=== PATIENT | female | born 1965 | race African-American/Black ===

== ENCOUNTER 2016-11-21 12:15 | Observation (INO) ==
[2016-11-21] MEDS ORDERED: ENOXAPARIN 100 MG/ML SYRINGE SUBCUT STA (12:50)
[2016-11-21] MEDS ORDERED: ASPIRIN 325 MG TABLET PO STA (12:50)
[2016-11-21] MEDS ORDERED: NITROGLYCERIN SL 0.4 MG TABLET SL PRN (12:50)
--- NOTE | 2016-11-21 12:53 | EKG Report ---
Stationary ECG Study [facility] ER Test Date: 11/21/2016 12:34:05 PM Pat Name: WM FARIAS Department: Room: 283 Gender: F Time Study Clerk: CARMEN Mello : 1965 Requested by: Keshawn Varner Order Number: [id number] Reading MD: LEON UMAÑA Intervals [place] Rate: 54 P: 60 NE: 146 QRS: 54 QRSD: 93 T: 60 QT: 402 QTc: 388 Interpretive Statements SINUS BRADYCARDIA Electronically Signed On 11-23-16 07:01:46 CDT by LEON UMAÑA [email or web address]
[2016-11-21] MEDS ORDERED: ASPIRIN 325 MG TABLET ONE (13:32)
[2016-11-21] MEDS ORDERED: ENOXAPARIN 40 MG/0.4 ML SYRINGE ONE (13:32)
[2016-11-21] MEDS ORDERED: ENOXAPARIN 100 MG/ML SYRINGE SUBCUT ONE (13:32)
--- NOTE | 2016-11-21 13:43 | XRay Report ---
Portable chest Date: 11/21/2016 Clinical history: Chest pain Comparison: 11/06/2008 Technique: Portable AP sitting chest Findings: The heart is larger in size with uncoiling of the aorta. More prominent pulmonary vasculature with progressive diffuse parenchymal findings especially at the lung bases. Degenerative changes are noted. Impression: Progressive cardiomegaly with findings which can be seen with mild CHF/pneumonitis. PROCEDURE INTERPRETED AT [facility] DEPARTMENT OF RADIOLOGY Final Report Signed by: Dr. Eileen Marvin
[2016-11-21] MEDS ORDERED: FUROSEMIDE 40 MG/4 ML VIAL IV STA (14:35)
[2016-11-21] MEDS ORDERED: FUROSEMIDE 40 MG/4 ML VIAL ONE (15:05)
[2016-11-21 15:57] LABS: Albumin 3.4 G/DL (3.4-5.0); Bilirubin,Total 0.5 MG/DL (0.2-1.0); Calcium 9.3 MG/DL (8.5-10.1); Magnesium 2.1 MG/DL (1.8-2.4); Osmolality,Calculated 277.5 MOS/KG (273-304); Total Protein 7.3 G/DL (6.4-8.3)
--- NOTE | 2016-11-21 16:02 | Emergency Department Note ---
Jack Doherty Manpreet, am scribing for, and in the presence of, Keshawn Black MD 13:06. Wayne Doherty Phillip K, MD, personally performed the services described in this documentation, ascribed by Elliot Santiago in my presence, and it is both accurate and complete [id number] . Arrival - Arrival Chief Complaint: Chest Pain Stated Complaint: sent from clinic/possible heart attack ED Nursing Triage Note: Pt c/o Chest pain, SOB, left arm pain, nausea, and broke out into a sweat this am. Mode of Arrival: Ambulatory Source: Patient Time Seen by Provider: 11/21/16 12:31 - History of Present Illness HPI Narrative: Pt is a 51 y/o female, with PMHx of HTN, who was transferred from a clinic with CC of tight and sharp CP. Pt also c/o SOB, left arm pain, nausea, and broke out into a sweat this am. Pt reports of being more tired and was sweating but not clammy. Pt's last heart catheterization was over a year ago and has not had a treadmill done. Pt has not taken a ASA today. No other pains/complaints reported to ED. Onset (ago): hour(s) Consistency: constant Severity: moderate Severity scale (1-10): 3 Allergies/Adverse Reactions: Allergies Allergy/AdvReac Type Severity Reaction Status Date / Time Penicillins AdvReac Hallucinati Verified 11/21/16 12:18 ng Home Medications: Home Medications Medication Instructions Recorded Confirmed Type Albuterol Sulfate [Ventolin HFA] 2 puff INH DAILY 11/21/16 11/21/16 History Furosemide Tab [Lasix Tab] 40 mg PO DAILY 11/21/16 11/21/16 History Triamterene/Hctz 37.5-25 Tab 1 tablet PO QAM 11/21/16 11/21/16 History [Maxzide 37.5-25] Review of System - Review of System 12 point system: reviewed and no additional remarkable complaints except as stated - Review of System Constitutional: Present: chills, diaphoresis. Absent: fever Respiratory: Present: respiratory distress Cardiovascular: Present: chest pain, dyspnea on exertion Gastrointestinal: Present: nausea. Absent: vomiting Musculoskeletal: Present: arm pain (Left arm pain). Absent: back pain Neurological: Absent: headache, weakness Medical,Surgical,& Family Hx - Medical History Cardio: History of: Hypertension, Cardiovascular Problems (Hole in heart) Musculoskeletal: History of: Musculoskeletal Problems (arthritis) - Social History Smoking Status: Never smoker Exam Vital Signs: Vital Signs Temperature 97.1 F L 11/21/16 12:23 Pulse Rate 68 11/21/16 12:23 Respiratory Rate 25 H 11/21/16 12:35 Blood Pressure 203/107 11/21/16 12:23 O2 Sat by Pulse Oximetry 100 11/21/16 12:23 - General General appearance: alert, in no apparent distress - Head Head exam: Present: atraumatic, normocephalic, normal inspection - Eye Eye exam: Present: normal appearance, PERRL, EOMI - ENT ENT exam: Present: normal exam, normal oropharynx, mucous membranes moist, TM's normal bilaterally - Neck Neck exam: Present: normal inspection, full ROM, trachea midline. Absent: tenderness - Chest Chest inspection: Present: normal inspection, symmetric chest wall rise. Absent : tenderness - Respiratory Respiratory exam: Present: normal lung sounds bilaterally. Absent: accessory muscle use, prolonged expiratory phase, respiratory distress - Cardiovascular Cardiovascular exam: Present: regular rate, normal rhythm, murmur. Absent: normal heart sounds - Expanded Cardiovascular Exam Type of murmur: systolic Location of murmur: RUSB Intensity of murmur: 3/6 - Abdominal Exam Abdominal exam: Present: tenderness (LUQ Tenderness to palpation), normal bowel sounds. Absent: soft - Extremities Exam Extremities exam: Present: full ROM, other (+2 Bilat pitting edema). Absent: normal inspection - Back Exam Back exam: Present: normal inspection, full ROM. Absent: tenderness - Neurological Exam Neurological exam: Present: alert, oriented X3, CN II-XII intact, reflexes normal - Psychiatric Psychiatric exam: Present: normal affect, normal mood - Skin Skin exam: Present: warm, dry, intact, normal color. Absent: pallor Course Course Narrative: Patient discussed with Dr. Cho who will admit for further evaluation. Results - Labs Lab Results: I have reviewed the patients labs Labs: Laboratory Tests 11/21/16 15:02 Troponin I < 0.015 - EKG EKG results: interpreted by ERMD, sinus rhythm (Slight ST-T changes inferiorly and laterally.) - Diagnostic Findings Procedure: Chest x-ray: report reviewed by me (Progressive cardiomegaly with findings which can be seen with mild CHF/pneumonitis.) Disposition Clinical Impression: Chest pain, Hypertension, Heart murmur Case discussed with: patient Disposition: Still a Patient Condition: Guarded Additional Instructions: Admit to Dr. Cho for cardiac workup.
--- NOTE | 2016-11-21 16:08 | ECHO Report ---
Margot Frias Exam Date: 11/21/2016 13:56 Referring Physician: Technologist: Age: 51 Ht (in): Wt (lb): Gender: F Exam Location: [facility] Echo Indications: BP: / HR: Rhythm: Sinus Technical Quality: IMPRESSIONS Technically adequate study 1+ left atrial enlargement 2-3+ concentric LVH Hyperdynamic LV systolic function with ejection fraction estimated be 70% without segmental wall motion normality 3-4+ aortic stenosis by mean/peak gradient of 35/57 mmHg, but aortic valve does not appear to be severely stenotic (LVOT gradient?) 1+ tricuspid regurgitation with RVSP 37 mmHg plus RAP Consider ENDY to clarify degree of aortic valve stenosis per MEASUREMENTS (Male / Female) Normal Values 2D ECHO LV Diastolic Diameter PLAX 4.4 cm 4.2 - 5.9 / 3.9 - 5.3 cm LV Systolic Diameter PLAX 2.7 cm LV Fractional Shortening PLAX 38.7 % IVS Diastolic Thickness 1.7 cm 0.6 - 1.0 / 0.6 - 0.9 cm LVPW Diastolic Thickness 1.7 cm 0.6 - 1.0 / 0.6 - 0.9 cm RV Internal Dim ED PLAX 2.4 cm Aortic Root Diameter 2.5 cm LA Systolic Diameter LX 4.2 cm 3.0 - 4.0 / 2.7 - 3.8 cm DOPPLER TR Peak Velocity 304.0 cm/s TR Peak Gradient 37.0 mmHg FINDINGS Left Ventricle Right Ventricle Right Atrium Left Atrium Mitral Valve Aortic Valve Tricuspid Valve Pulmonic Valve Pericardium Aorta Isaías Cho (Electronically Signed) Final Date: 21 November 2016 16:07
--- NOTE | 2016-11-21 16:50 | Cardiology History & Physical ---
Assessment and Plan - Time spent with patient Time spent with patient: Greater than 30 minutes (1) Shortness of breath Status: Acute Assessment and plan: SEE PLAN OF CARE LISTED BELOW Current Visit: Yes (2) Sleep disorder Status: Chronic Assessment and plan: SEE PLAN OF CARE LISTED BELOW Current Visit: Yes (3) Aortic stenosis Status: Acute Assessment and plan: SEE PLAN OF CARE LISTED BELOW Current Visit: Yes (4) Dyslipidemia Status: Chronic Assessment and plan: SEE PLAN OF CARE LISTED BELOW Current Visit: Yes (5) Morbid obesity with BMI of 60.0-69.9, adult Status: Chronic Assessment and plan: SEE PLAN OF CARE LISTED BELOW Current Visit: Yes (6) Chest pain Status: Acute Assessment and plan: SEE PLAN OF CARE LISTED BELOW Current Visit: Yes (7) Hypertension Status: Chronic Assessment and plan: SEE PLAN OF CARE LISTED BELOW Current Visit: Yes (8) Heart murmur Status: Chronic Assessment and plan: SEE PLAN OF CARE LISTED BELOW Current Visit: Yes History of Present Illness Chief complaint: chest pain, left arm pain, cardiac murmur, SOB 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 BEARDEN Patient is being seen in the emergency department Ms. Frias, 51BF, has risk factors significant for: Hypertension, dyslipidemia, morbid obesity, sedentary lifestyle, family history of premature coronary artery disease. Patient has sleep disorder suspected to be sleep apnea. Ms. Frias presented to the emergency department at [facility] November 21, 2016 after experiencing chest pain and left arm discomfort. Initially, chest pain occurred Monday between 2 and 3 PM. Patient had eaten a large meal and felt as if it could be heartburn. She took several medications without relief. It did not radiate but did cause mild shortness of breath. She describes this as a heaviness. After approximately 30-45 minutes, and the discomfort resolved. This morning, as patient was getting out of bed she began to experience sharp and stabbing chest pain located in the mid chest area which radiated to the left arm. She began to feel nauseated, diaphoretic and short of breath. She does have reproducible chest discomfort but this is a separate type of chest pain. Chest discomfort lasted several hours as did the left arm pain. With the left arm pain, she felt numbness, tingling of her fingers. She rates the discomfort as a 7 on a scale of 1-10. She is currently chest pain-free. Of note, patient remarks that over the past 2-3 months, she has been experiencing chest heaviness while exerting herself. She reports taking a shower and or walking to her car causes extreme fatigue and chest heaviness as well as shortness of breath. Rest alleviates the discomfort. It is predictable and incurring on a routine pattern. Cardiac biomarkers are negative, EKG reveals nonspecific ST abnormality. Patient has a known cardiac murmur. Approximately 1 year ago, saw a supervisor assembly room at [place] and was told she may have "a pinhole size leak." She has never had a heart catheterization. Several years ago, underwent stress testing and received favorable results. She believes she may have previously been told she has aortic stenosis, the term is familiar. She has chronic edema. She is sedentary but has noticed a change in her exercise tolerance. Echocardiogram November 21, 2016 reveals the following: EF 70%, 3-4+ aortic stenosis by mean/peak gradient of 35/57 mmHg, but aortic valve does not appear to be severely stenotic (LVOT gradient?), RVSP 37mmHg. Patient may benefit from ENDY to further clarify degree of aortic valve stenosis. Patient needs further workup regarding her cardiac complaints of chest pain. Due to her habitus, she is not a candidate for stress testing. He may benefit from cardiac catheterization and should she undergo said procedure, may undergo ENDY during that procedure. Will recommend anesthesia to be present given the patient's morbid obesity and Mallampati Airway Class IV. Will continue to monitor cardiac biomarkers, EKG. Patient's blood pressure was extremely high on arrival and we will adjust medications accordingly. Will consult Dr. Arzola for evaluation of sleep disorder suspected to be severe sleep apnea. I will further discuss with Dr. Bearden and await additional recommendations. (CBC not back at this time. Having to be redrawn on numerous occasions due to clotting.) ASSESSMENT/PLAN: 1. AORTIC STENOSIS -transthoracic echocardiogram gives conflicting information regarding severity of aortic stenosis. May benefit from ENDY. Should she require ENDY, recommend anesthesia be present given her morbid obesity, neck circumference greater than 44 cm, Mallampati Airway Class IV. 2. CHEST PAIN - patient has numerous risk factors which puts her at risk for angina. May benefit from heart catheterization. She is not a candidate for stress testing due to her weight. I will keep her n.p.o. after midnight tonight. Venous ultrasound bilateral lower extremity. 3. HYPERTENSION -suboptimally controlled. On arrival blood pressure was 203/ 107. Currently 145/90. Will adjust medications accordingly during hospital stay. We will start Norvasc 5 mg now. Will add hydralazine as needed systolic blood pressure greater than 170 mmHg. 4. DYSLIPIDEMIA - continue lipid-lowering agent. Lipid profile in the morning 5. MORBID OBESITY - dietary counseling prior to discharge 6. SLEEP DISORDER - consult Dr. Arzola. Home Medications Medication Instructions Recorded Confirmed Type Albuterol Sulfate [Ventolin HFA] 2 puff INH DAILY 11/21/16 11/21/16 History Furosemide Tab [Lasix Tab] 40 mg PO DAILY 11/21/16 11/21/16 History Triamterene/Hctz 37.5-25 Tab 1 tablet PO QAM 11/21/16 11/21/16 History [Maxzide 37.5-25] Allergies Allergy/AdvReac Type Severity Reaction Status Date / Time Penicillins AdvReac Hallucinati Verified 11/21/16 12:18 ng Review of systems: REVIEW OF SYSTEMS: - Constitutional Constitutional: Present: Fatigue. Absent: syncope, anorexia, night sweats - EENT Eyes: Absent: blurry vision, loss of vision, diplopia Ears: Absent: decreased hearing, ear pain, ear discharge - Cardiovascular Cardiovascular: Present: chest pain with exertion, dyspnea on exertion, edema. Chest pain at rest. Denies palpitations. Absent: chest pain with deep breath, claudication - Respiratory Respiratory: Present: ALONZO, denies cough. Absent: wheezing, hemoptysis, change in phlegm color - Gastrointestinal Gastrointestinal: Present: constipation. Absent: abdominal pain, hematemesis , hematochezia, melena, change in bowel habits, nausea - Genitourinary Genitourinary: Absent: difficulty urinating, dysuria, urinary hesitancy, flank pain - Musculoskeletal Musculoskeletal: Present: back pain, knee pain absent: joint swelling, muscle cramps, muscle weakness - Neurological Neurological: Present: Poor gait without frequent falls. Absent: dizziness, hemiparesis - Psychiatric Psychiatric: Absent: anxiety, depression, difficulty concentrating - Endocrine Endocrine: Present: fatigue. Absent: cold intolerance, heat intolerance, polyuria, polyphagia, polydipsia - Hematologic/Lymphatic Hematologic/Lymphatic: Present: easy bruising. Absent: easy bleeding -Integumentary Integumentary: Absent: lesions, rashes, skin breakdown Medical,Surgical,& Family Hx - Medical History Cardio: History of: Hypertension, Cardiovascular Problems (Hole in heart) No history of: CAD, [place] Musculoskeletal: History of: Musculoskeletal Problems (arthritis) - Social History Smoking Status: Never smoker Have you smoked in the last 12 months: No Cardiology Physical Exam - Constitutional Vitals: Vital Signs Temp Pulse Resp BP Pulse Ox 97.1 F L 68 25 H 203/107 100 11/21/16 12:23 11/21/16 12:23 11/21/16 12:35 11/21/16 12:23 11/21/16 12:23 Intake and Output 11/21/16 11/21/16 11/21/16 07:59 15:59 23:59 Other: Weight 171.912 kg Patient Weight 11/21/16 23:59 Weight 171.912 kg Exam: General: [Appears well with no apparent distress.] [Pleasant and cooperative. ] [Appears comfortable.] HEENT: [PERRL, normocephalic, atraumatic. Mucous membranes moist. No jaundice noted. Conjunctiva moist and clear, sclerae anicteric] Neck: Unable to determine JVD due to habitus. No thyromegaly or lymphadenopathy noted. No carotid bruit appreciated Cardiac: [Regular rate and rhythm.] [IV/ VIKRAM heard best at BUSB. Lungs: [Clear to auscultation without accessory muscle use to assist the respiratory pattern.] Oxygen in use via nasal cannula Abdomen: Soft, bowel sounds normoactive. Nontender and nondistended. No abdominal bruit or thrill noted. No masses noted. Musculoskeletal: No fluid collection. Decreased range of motion is noted. Extremities: No clubbing, cyanosis noted. [Trace bilateral lower extremity edema noted.] Upper extremity pulses 2+. Lower extremity pulses 1+. Capillary refill less than 3 seconds. Skin: No unusual lesions or rashes. No skin breakdown appreciated. Neuro: Awake, alert and oriented 3. Moves all extremities well without hemiparesis or paralysis. No essential tremor is appreciated. Result/EKG - Labs CBC & BMP: 11/21/16 15:02 Lab Results: I have reviewed the past 24 hour labs Labs: Laboratory Results - last 24 hr 11/21/16 11/21/16 15:02 15:02 Sodium 139 Potassium 4.0 Chloride 104 Carbon Dioxide 26 Anion Gap 13.0 BUN 14 Creatinine 0.90 GFR Calculation 127 BUN/Creatinine Ratio 15.00 Glucose 93 Calculated Osmolality 277.5 Calcium 9.3 Magnesium 2.1 Total Bilirubin 0.50 AST 29 ALT 39 Alkaline Phosphatase 62 Troponin I < 0.015 Total Protein 7.3 Albumin 3.4 Globulin 3.9 H Albumin/Globulin Ratio 0.8 L - Diagnostic Findings Procedure: Chest x-ray: report reviewed by me, Ultrasound: report reviewed by me (Echo) - EKG EKG results: interpreted by me EKG shows: sinus rhythm
--- NOTE | 2016-11-21 17:47 | Ultrasound Report ---
Exam: US venous doppler LE BI Indication: Swelling lower extremities chest pain shortness of breath Date: 11/21/2016 4:56 PM Findings: Grayscale color flow duplex/Doppler imaging and spectral analysis waveform imaging was performed with real-time ultrasound with image stored and captured. The right common femoral, superficial femoral, popliteal saphenous veins are patent with normal augmentation and compression. There is no evidence of popliteal or Baires's cyst. Normal wave form analysis present. Normal color flow The left common femoral, superficial femoral, popliteal saphenous veins are patent with normal augmentation and compression. There is no evidence of popliteal or Baires's cyst. Normal wave form analysis present. Normal color flow Impression: 1. No DVT PROCEDURE INTERPRETED AT [facility] DEPARTMENT OF RADIOLOGY Final Report Signed by: Dr. Abbe Romano
[2016-11-21] MEDS ORDERED: POTASSIUM CHLORIDE 20 MEQ TABLET PO PRN (17:54)
[2016-11-21] MEDS ORDERED: DOCUSATE SODIUM 100 MG CAPSULE PO PRN (17:54)
[2016-11-21] MEDS ORDERED: ACETAMINOPHEN 325 MG TABLET PO PRN (17:54)
[2016-11-21] MEDS ORDERED: MAGNESIUM SULF RIDER 4 GM in PREMIX 1 EACH IV PRN (17:54)
[2016-11-21] MEDS ORDERED: BISACODYL 5 MG TABLET PO PRN (17:54)
[2016-11-21] MEDS ORDERED: ZALEPLON 5 MG CAPSULE PO PRN (17:54)
[2016-11-21] MEDS ORDERED: MAGNESIUM SULF RIDER 2 GM in PREMIX 1 EACH IV PRN (17:54)
[2016-11-21] MEDS: amLODIPine 5 MG TABLET PO SCH (18:17)
[2016-11-21] MEDS: PANTOPRAZOLE 40 MG TABLET PO SCH (18:17)
[2016-11-21] MEDS: SODIUM CHLORIDE 0.45% 1,000 ML IV SCH (18:17)
[2016-11-21 19:56] LABS: Basophils % 0.2 % (0.0-0.8); Eosinophils # 0.2 10*3/uL (0.0-0.87); Eosinophils % 1.4 % (0.00-10.9); Hematocrit 39.9 VOL% (35.7-47.0); Hemoglobin 13.3 GM/DL (12.0-16.0); Immature Granulocytes % 0.5 %; Immature Granulocytes Absolute 0.05 #; Lymphocytes # 2.5 10*3/uL (1.4-4.0); Lymphocytes % 23.6 % (21.3-54.2); Mean Corpuscular HGB Conc 33.3 GM/DL (32-36); Mean Corpuscular Hemoglobin 28 PG (27-34); Mean Corpuscular Volume 84.7 FL (87-102); Monocytes # 0.7 10*3/uL (0.11-0.8); Monocytes % 6.5 % (1.7-12.7); Neutrophils # 7.2 10*3/uL (1.4-7.4); Neutrophils % 67.8 % (38.7-73.9); Platelet Count 286 T/CUMM (130-400); Red Blood Count 4.71 MC/CUMM (3.8-5.5); Red Cell Distribution Width 13.7 % (9.3-17.3); White Blood Count 10.6 T/CUMM (4-12)
[2016-11-22] MEDS: hydrALAZINE 20 MG/1 ML VIAL IV PRN ×2 (01:16→23:33)
[2016-11-22] MEDS: ONDANSETRON 4 MG/2 ML VIAL IV PRN (03:15)
[2016-11-22 05:55] LABS: Basophils % 0.2 % (0.0-0.8); Eosinophils # 0.1 10*3/uL (0.0-0.87); Eosinophils % 0.9 % (0.00-10.9); Hematocrit 36.3 VOL% (35.7-47.0); Immature Granulocytes % 0.6 %; Immature Granulocytes Absolute 0.07 #; Lymphocytes # 1.9 10*3/uL (1.4-4.0); Lymphocytes % 16.3 % (21.3-54.2); Mean Corpuscular HGB Conc 33.1 GM/DL (32-36); Mean Corpuscular Hemoglobin 28 PG (27-34); Mean Corpuscular Volume 84.6 FL (87-102); Mean Platelet Volume 9.8 FL (9.6-12.0); Monocytes # 0.9 10*3/uL (0.11-0.8); Monocytes % 7.5 % (1.7-12.7); Neutrophils # 8.8 10*3/uL (1.4-7.4); Neutrophils % 74.5 % (38.7-73.9); Platelet Count 261 T/CUMM (130-400); Red Blood Count 4.29 MC/CUMM (3.8-5.5); Red Cell Distribution Width 13.7 % (9.3-17.3); White Blood Count 11.8 T/CUMM (4-12)
[2016-11-22 06:27] LABS: Calcium 8.9 MG/DL (8.5-10.1); Magnesium 2.1 MG/DL (1.8-2.4); Osmolality,Calculated 276.7 MOS/KG (273-304); Potassium 3.6 MMOL/L (3.5-5.1); Risk Ratio 5.63; VLDL CHOLESTEROL 34.4 MG/DL
[2016-11-22 06:29] LABS: Albumin 3.5 G/DL (3.4-5.0); Bilirubin,Total 0.8 MG/DL (0.2-1.0); Calcium 9.1 MG/DL (8.5-10.1); Osmolality,Calculated 276.7 MOS/KG (273-304); Potassium 3.6 MMOL/L (3.5-5.1); Total Protein 7.4 G/DL (6.4-8.3)
[2016-11-22] MEDS: SODIUM CHLORIDE 0.45% 1,000 ML IV SCH (08:30)
[2016-11-22] MEDS ORDERED: diphenhydrAMINE CAP 25 MG CAPSULE PO ONE (09:01)
[2016-11-22] MEDS ORDERED: POTASSIUM CHLORIDE RIDER 10 MEQ in PREMIX 1 EACH IV PRN (09:01)
[2016-11-22] MEDS ORDERED: DIAZEPAM 5 MG TABLET PO ONE (09:01)
[2016-11-22] MEDS ORDERED: MAGNESIUM SULF RIDER 2 GM in PREMIX 1 EACH IV PRN (09:01)
--- NOTE | 2016-11-22 09:01 | Event Note ---
Patient with chest pain and shortness of breath. Shortness is anginal quality. She has a murmur and told that she had a murmur for years. Echocardiogram reveals gradient across the aortic valve/LVOT. Question whether this patient is a is aortic valve stenosis. I am unable to bring the patient echo pictures. Anyway Dr. Cho request we do a right left heart catheterization. I have discussed this procedure with the patient reviewing the indication procedure how would be carried out the risk. I discussed with her her echo results per report. I discussed cardiac catheterization and percutaneous coronary intervention with the patient and available family. I reviewed with them the indications for the procedure and the basis of how the procedure would be carried out. I also reviewed with them the risk of the procedure which include but not necessarily limited to access site bleeding, bruising, pain, swelling or vascular injury that may require emergency vascular surgery, blood transfusion, or thrombin injection. Also discussed the possibility of stroke, myocardial infarction, arrhythmia which may require electrocardioversion, and the possibility of dye reaction that would require medical therapy. Also discussed the possibility of coronary artery injury, ruptured, closure or perforation that may require emergency bypass surgery. We also discussed the possibility of from a major complication. They voice understanding and agree to proceed. We will plan on carrying out today.
--- NOTE | 2016-11-22 09:01 | History and Physical Update ---
Sedation H&P Update - History and Physical H&P was reviewed, the patient examined and there: are no changes in the patients condition since last H&P was completed. - Dictation Physical: refer to H&P completed by admitting physician - Physical Exam Mental Status: alert and oriented Heart: regular rate and rhythm, other (Has cardiac murmur of aortic valve disease/aortic stenosis.) Lung: clear to auscultation Abdomen: within normal limits Vitals: within normal limits - Sedation Plan for Sedation: moderate Patient Consent: Procedure disscussed with patient and patinet has consented., Risks and benefits were discussed with patient,including infection,, bleeding, injury to surrounding structures, seizure, temporary nerve, Patient understands and accepts potential risks/benefits and agrees to, proceed. ASA Class: III Airway Assessment: Class IV: Only hard palate visible
[2016-11-22] MEDS: TRIAMTERENE/HCTZ 37.5-25 MG TABLET PO SCH (09:51)
[2016-11-22] MEDS: FUROSEMIDE 40 MG TABLET PO SCH (09:51)
[2016-11-22] MEDS: PANTOPRAZOLE 40 MG TABLET PO SCH (09:52)
[2016-11-22] MEDS ORDERED: MIDAZOLAM 2 MG/2 ML VIAL ONE (11:56)
[2016-11-22] MEDS ORDERED: LIDOCAINE 1% 20 ML VIAL ONE (11:56)
[2016-11-22] MEDS ORDERED: fentaNYL 100 MCG/2 ML VIAL ONE (11:56)
[2016-11-22] MEDS: amLODIPine 5 MG TABLET PO SCH (12:04)
--- NOTE | 2016-11-22 13:26 | Operative Note ---
Date of procedure: 11/22/16 Procedure Preformed: Right and left heart catheterization with coronary angiography left ventricular angiogram. Surgeon / Physician: Elias Magdaleno Cellophane Bath Mixer: Erlinda Jeronimo Post-op diagnosis: same Findings: Patient has a subaortic valve gradient without a valvular gradient. Coronary arteries are patent. LVEF is greater than 70% and hyperdynamic. Specimens: none sent Estimated blood loss: minimal Condition: stable Anesthesia: local, conscious sedation Disposition: floor
[2016-11-22] MEDS ORDERED: SODIUM CHLORIDE 0.9% 1,000 ML IV SCH (13:30)
--- NOTE | 2016-11-22 14:10 | Cardiac Catheterization ---
Date of Procedure:: 11/22/16 Pre-op Diagnosis: 51-year-old female whose shortness of breath and some chest discomfort. Echocardiogram reveals what may be aortic valve stenosis or so valvular stenosis. Post-op diagnosis: same Procedure: RIGHT AND LEFT HEART CATHERIZATION History: Pre-Op diagnosis: Postoperative diagnosis: Procedures: 1. Right and Left heart catheterization. 2. Left ventricular angiogram. 3. Selective left and right coronary angiograms. 4. Right common femoral artery angiogram with Angio-Seal hemostasis. 5. Left internal mammary artery angiogram. Equipment: 6 [place] arterial sheath, 6 [place] diagnostic pigtail catheter, JL4 and JR4 diagnostic catheters were used for left heart catheterization. 7 [place] venous sheath and 7 [place] Kingston-Bruno catheter were used for right heart catheterization A 6 [place] Angio-Seal hemostatic device. Medications: Preoperative Benadryl and Valium given by mouth. Lidocaine 1% local anesthesia mls administered by myself. Intraprocedure patient received Versed milligrams, fentanyl micrograms, Dilaudid milligrams. Complications: None immediate. Contrast: Omnipaque 131 millimeters. Description of procedure: After informed consent the patient was given preoperative medications and brought to the catheterization laboratory where their right groin was prepped and draped in usual fashion. IV sedation was then obtained after which local anesthesia was administered at the right groin over the right common femoral artery and vein. Using modified Seldinger technique the right common femoral artery and vein were cannulated with 6 [place] arterial sheath and 7 [place] venous sheath placed respectively. The Kingston-Bruno catheter was advanced through the 7 [place] femoral vein sheath in a antegrade fashion through inferior vena cava to the right atrium where O2 saturation sample was obtained. The catheter was then advanced into the pulmonary artery were O2 saturation sample was obtained. A simultaneous right femoral artery O2 saturation sample was obtained. Thermodilution cardiac outputs were then measured. At this point pressures were measured in the wedge position, pulmonary artery, right ventricle and then in the right atrium. Kingston- Bruno catheter was then removed and discarded. We initially advanced the right coronary catheter over a straight wire with the idea that we may have significant aortic valve stenosis. The straight wire was used to cross the aortic valve and enter the left ventricle where pressures were attempted to measure. We had a lot of ectopy that we could never get quite enough. We exchanged for the pigtail catheter across the aortic valve. Should be noted that we did do a pullback with this pigtail catheter and was easily able to recross aortic valve with the out even a wire. This certainly would indicate that there is not significant stenosis of the aortic valve. The pigtail catheter was used to acquire left ventricular pressures with slow pullback to just below the aortic valve. Across this area we saw that we had a significant drop in pressure. From this point pullback across the aortic valve we did not see a drop in pressure. We did document our positions with low dose contrast angiogram. After we completed mapping the pressures in the left ventricle and across the aortic valve in the LVOT outflow tract we removed the pigtail catheter. The pigtail catheter was used to obtain left ventricular angiogram in the right anterior oblique view. The pigtail catheter was then removed. The JL4 diagnostic coronary catheter was then advanced through the sheath in a retrograde approach and used to cannulate the left coronary artery of which angiograms were obtained in multiple projections. This catheter was then removed. The JR 4 diagnostic coronary catheter was then advanced retrograde through the aorta and used to cannulate the right coronary artery of which angiograms were obtained in multiple projections. Angiograms were then reviewed. The right coronary catheter was pulled back into the sheath where a right common femoral artery angiogram was obtained with Angio-Seal hemostasis then obtained of this vessel. There was no immediate complications. Hemodynamic data: PCW 36/29, mean 24; PA 50/21, mean 34; RV 50/7, EDP 15; RA mean 12. LV 215/-3 , EDP 19 ; Sub aortic valve 148/24; AO root 137/42 , mean 94 . Oxygen saturations: RA 82 %; PA 81 %; FA 98 % . Cardiac outputs: Josiane CO 10.23 L/min, CI 4 L/min/m2; Thermal Dilution CO 9.68 L/min, CI 3.8 L/min/m2. Aortic valve area: mild gradient at worse Left ventricular angiogram: Left ventricle is grossly normal size but hyperdynamic. Ejection fraction 70+%. See above in regard to the patient's gradients. From subvalvular to the aorta there was no gradient. Left main coronary artery angiogram: Left main coronary is widely patent and medium large size. It bifurcates the LAD and circumflex arteries. Left anterior descending artery angiogram: LAD proximal is large caliber vessel that extends around the posterior apex. The first diagonal branch is a medium sized vessel long car larger myocardium. The LAD and branches are without stenosis or other disease. Circumflex artery angiogram: The cervix was a large caliber vessel and nondominant. First obtuse and second obtuse marginal branches are small vessels. Distal third obtuse marginal branch is medium caliber vessel. The service artery proper and branches are widely patent without stenosis or other disease. Right coronary artery angiogram: The RCA is a medium caliber vessel dominant. The PDA is a medium caliber vessel with posterior branches being small medium caliber vessels. The RCA proper branches are all widely patent without stenosis or disease. Right common femoral artery angiogram: Right calf arteries widely patent with successful Angio-Seal hemostasis. Impression: 1. Right-sided pressures are mild to moderately elevated. 2. Left ventricle is normal size and hyperdynamic ejection fraction 70+%. 3. LVEDP is mildly elevated at 19 mmHg. 4. There is a subvalvular gradient in the left ventricle outflow tract as described above. 5. Aortic valve is without significant gradient it worse mild. 6. There is no significant mitral valve regurgitation. 7. Right left coronary systems are widely patent without stenosis or disease. 8. Right comfort is widely patent with successful Angio-Seal hemostasis. Discussion: The patient has what appears to be a subvalvular gradient across the LVOT. There is no significant gradient across the aortic valve itself. Coronary arteries are widely patent. This patient be monitored post catheterization. Implants: None Anesthesia: local, moderate conscious sedation Surgeon / Physician: Elias Magdaleno Estimated blood loss: minimal Specimens: none sent Condition: stable Disposition: floor - Medications / Follow-up
[2016-11-22] MEDS: ALBUTEROL 2.5 MG/3 ML NEB RESP TX SCH (14:17)
--- NOTE | 2016-11-22 16:05 | Event Note ---
Patient doing well post cardiac catheterization. Groin is stable. Discussed findings of the catheterization with the patient and family that is present.
--- NOTE | 2016-11-22 18:28 | Sleep Medicine Consult ---
Assessment and Plan (1) Sleep disorder Status: Chronic Assessment and plan: I am certainly concerned that this patient has a sleep disorder such as obstructive sleep apnea. She does need sleep evaluation with either home sleep testing or in lab polysomnography. She has [facility] which usually insists on home sleep study first. Apparently this had been tried to be done a year ago but she could not afford the [id number] expense. We will have to look into this and work with her on this. Thank you for this consult and the opportunity to participate in her care. I do think she has potential for significant benefit given the severity of her symptoms. Current Visit: Yes (2) Hypertension Status: Chronic Assessment and plan: The prevalence rate for obstructive sleep apnea patients with hypertension is 35 %. That rate can be as high as 80% in patients who require 4 or more medications for blood pressure control. Current Visit: Yes (3) Morbid obesity with BMI of 60.0-69.9, adult Status: Chronic Assessment and plan: Patient encouraged to continue to work on weight loss thru appropriate dieting and exercise. The combination of weight loss and CPAP therapy for obstructive sleep apnea is better than either therapy alone for obstructive sleep apnea. Current Visit: Yes History of Present Illness Chief complaint: Sleep apnea History of present illness: Ms. Frias is a 51 year old female admitted with shortness of breath. She has a history of aortic stenosis. She underwent cardiac catheterization today and was found to have mild aortic stenosis at worse across the valve but did have a subvalvular gradient. She had evidence of hyperdynamic left ventricular activity and an elevated end-diastolic pressure of 19. She has a history of symptoms concerning for sleep apnea and sleep medicine was consulted. She actually did have a sleep study many years ago at another sleep center and was told that she had mild sleep apnea and was treated with conservative measures of weight loss and positional training. Since that time, she is gaining weight and is developed worsening symptoms. She does snore loudly and has been told that she stops breathing during her sleep. She has difficulty maintaining sleep with frequent awakenings due to shortness of breath. She also has to get up 2-3 times a night to urinate. She denies any significant issues with daytime fatigue and sleepiness. Of note, she had palatal surgery with tonsillectomy and adenoidectomy as a teenager or young adult. Home Medications Medication Instructions Recorded Confirmed Type Albuterol Sulfate [Ventolin HFA] 2 puff INH DAILY 11/21/16 11/21/16 History Furosemide Tab [Lasix Tab] 40 mg PO DAILY 11/21/16 11/21/16 History Triamterene/Hctz 37.5-25 Tab 1 tablet PO QAM 11/21/16 11/21/16 History [Maxzide 37.5-25] Allergies Allergy/AdvReac Type Severity Reaction Status Date / Time Penicillins AdvReac Hallucinati Verified 11/21/16 12:18 ng Review of systems: Notable for lower extremity swelling. Exam (Pulmonay) H&P - Constitutional Vitals: Period Temp Pulse Resp BP Sys/Stein Pulse Ox Last 24 Hr 97.4 F-98.4 F 61-86 16-20 130-209/51-101 91-99 Exam: She is alert and responsive in no acute distress. Pupils equal round reactive to light and accommodation. Extraocular movements intact. Oropharynx with a class IV Mallampati exam. Neck is supple without adenopathy or thyromegaly. No supraclavicular adenopathy is noted. Chest with symmetrical breath sounds without focal wheeze, rhonchi, or rales. Cardiac exam reveals a regular rhythm with grade 2/6 murmur murmur without gallop. Abdomen obese nontender without palpable hepatosplenomegaly or mass. Extremities are without clubbing, cyanosis , or edema. Neurologically, the patient is grossly intact. She moves all extremities with good strength. Medical,Surgical,& Family Hx - Medical History Cardio: History of: Hypertension, Cardiovascular Problems (Hole in heart) No history of: CAD, [place] Respiratory: History of: Asthma Musculoskeletal: History of: Musculoskeletal Problems (arthritis) - Surgical History HEENT Surgeries: Surgical HX of: Tonsilectomy & Adenoidectomy - Family History Family History: Reports;: Family Heart Disease, Family Hypertension - Social History Smoking Status: Never smoker Frequency of Alcohol Use: None Type of Drug Use: None Results - Labs CBC & BMP: 11/22/16 05:38 11/22/16 05:38 Lab Results: I have reviewed the past 24 hour labs Labs: Thyroid function studies are normal. Quality Measures - VTE Contraindication to Pharmacological VTE Prophylaxis: High Risk of Bleeding - Stroke Symptom Onset Unknown: No
[2016-11-23 04:11] LABS: Basophils % 0.2 % (0.0-0.8); Eosinophils # 0.2 10*3/uL (0.0-0.87); Eosinophils % 1.8 % (0.00-10.9); Hematocrit 36.4 VOL% (35.7-47.0); Hemoglobin 11.8 GM/DL (12.0-16.0); Immature Granulocytes % 0.5 %; Immature Granulocytes Absolute 0.05 #; Lymphocytes # 2.1 10*3/uL (1.4-4.0); Lymphocytes % 19.4 % (21.3-54.2); Mean Corpuscular HGB Conc 32.4 GM/DL (32-36); Mean Corpuscular Hemoglobin 27 PG (27-34); Mean Corpuscular Volume 84.1 FL (87-102); Mean Platelet Volume 9.7 FL (9.6-12.0); Monocytes % 8.9 % (1.7-12.7); Neutrophils # 7.5 10*3/uL (1.4-7.4); Neutrophils % 69.2 % (38.7-73.9); Platelet Count 282 T/CUMM (130-400); Red Blood Count 4.33 MC/CUMM (3.8-5.5); Red Cell Distribution Width 13.7 % (9.3-17.3); White Blood Count 10.9 T/CUMM (4-12)
[2016-11-23 04:34] LABS: Calcium 9.1 MG/DL (8.5-10.1); Magnesium 2.2 MG/DL (1.8-2.4); Osmolality,Calculated 275.7 MOS/KG (273-304); Potassium 3.8 MMOL/L (3.5-5.1)
[2016-11-23 04:44] LABS: Albumin 3.5 G/DL (3.4-5.0); Bilirubin,Total 0.7 MG/DL (0.2-1.0); Calcium 9.3 MG/DL (8.5-10.1); Osmolality,Calculated 277.5 MOS/KG (273-304); Potassium 3.8 MMOL/L (3.5-5.1); Total Protein 7.3 G/DL (6.4-8.3)
[2016-11-23] MEDS: hydrALAZINE 20 MG/1 ML VIAL IV PRN (05:21)
[2016-11-23] MEDS: ONDANSETRON 4 MG/2 ML VIAL IV PRN (05:22)
[2016-11-23] MEDS: ALBUTEROL 2.5 MG/3 ML NEB RESP TX SCH (08:46)
[2016-11-23] MEDS: PANTOPRAZOLE 40 MG TABLET PO SCH (08:54)
[2016-11-23] MEDS: FUROSEMIDE 40 MG TABLET PO SCH (08:54)
[2016-11-23] MEDS: TRIAMTERENE/HCTZ 37.5-25 MG TABLET PO SCH (08:54)
[2016-11-23] MEDS: amLODIPine 5 MG TABLET PO SCH (08:54)
--- NOTE | 2016-11-23 09:53 | Event Note ---
Patient underwent cardiac catheterization yesterday. See report. Patient may be eligible for discharge this afternoon. She has had some nausea this morning. I will reevaluate her in early afternoon and hopefully plan to discharge her today.
[2016-11-23 11:41] VITALS: BP 165/87
--- NOTE | 2016-11-23 12:08 | Discharge Summary ---
Hospital Course - Hospital Course Hospital Course: TRAIN CALLER: (NEW) DR. BEARDEN Ms. Frias, 51BF, has risk factors significant for: Hypertension, dyslipidemia, morbid obesity, sedentary lifestyle, family history of premature coronary artery disease. Patient has sleep disorder suspected to be sleep apnea. Ms. Frias presented to the emergency department at [facility] November 21, 2016 after experiencing chest pain and left arm discomfort, associated with shortness of breath. Although patient did have reproducible chest pain, she also had a chest discomfort which occurred with exertion and was associated with shortness of breath. November 21, 2016, underwent transthoracic echocardiogram which revealed conflicting information regarding the severity of her aortic stenosis. There was concern she may have severe left according to her TTE results. Grade IV/ murmur noted. Cardiac biomarkers negative but EKG revealed nonspecific ST abnormality. Patient exceeded weight limit for stress testing. For these reasons, she underwent RIGHT AND LEFT HEART CATHETERIZATION performed by Dr. Magdaleno November 22, 2016 with the following impressions noted: Impression: 1. Right-sided pressures are mild to moderately elevated. 2. Left ventricle is normal size and hyperdynamic ejection fraction 70+%. 3. LVEDP is mildly elevated at 19 mmHg. 4. There is a subvalvular gradient in the left ventricle outflow tract as described above. 5. Aortic valve is without significant gradient it worse mild. 6. There is no significant mitral valve regurgitation. 7. Right left coronary systems are widely patent without stenosis or disease. 8. Right comfort is widely patent with successful Angio-Seal hemostasis. Discussion: The patient has what appears to be a subvalvular gradient across the LVOT. There is no significant gradient across the aortic valve itself. Coronary arteries are widely patent. Patient did well post catheterization without significant problems. She did have some nausea in the human resource intern hours. Labs are stable. Sleep medicine, Dr. Arzola, evaluated patient and agrees she definitely has symptoms concerning for severe obstructive sleep apnea. Plan is in place for outpatient testing. Having felt she had met maximal medical therapy, patient is being discharged home in stable condition. She will be given a 2-3 week follow-up with Dr. Bearden. At that visit the following will be obtained, BMP, magnesium, CBC. Discharge medications include the following: Aspirin 81 mg orally daily Amlodipine 5 mg orally daily (new) Lasix 40 mg orally daily Prilosec 20 mg orally daily (new) Triamterene/HCT 37.5/25 mg orally daily Atorvastatin 20 mg orally each evening (new for LDL 168) - Time spent with patient Time with patient DS: Less than 30 minutes Diagnosis - Discharge Diagnosis (1) Shortness of breath Status: Chronic (2) Sleep disorder Status: Chronic (3) Aortic stenosis Status: Acute (4) Dyslipidemia Status: Chronic (5) Morbid obesity with BMI of 60.0-69.9, adult Status: Chronic (6) Chest pain Status: Acute (7) Hypertension Status: Chronic (8) Heart murmur Status: Chronic Specialty Discharge - Follow Up or Referrals Follow up with: Isaías Bearden MD [Physician] - 12/12/16 9:30 am (2-3 weeks. KIMI Mg, CBC) Discharge Plan - Discharge Data Disposition: Disch To Home/Self Care Condition at Discharge: Stable Discharge Diet: heart healthy Activity: resume usual activities as tolerated Hygiene: no restrictions Weight Bearing at Discharge: full weight bearing Driving: no restrictions Contact your physician if you experience:: fever over 101, Difficulty voiding, Redness or swelling, Nausea/Vomiting, Shortness of breath, Bleeding, pain uncontrolled by pain medications - Discharge Medications New amLODIPine [Norvasc] 5 mg PO DAILY #30 tablet Aspirin EC Tab 81 mg PO DAILY #30 tablet Atorvastatin [Lipitor] 20 mg PO BEDTIME #30 tablet Pantoprazole Tab [Protonix Tab] 40 mg PO DAILY #30 tablet Continue Furosemide Tab [Lasix Tab] 40 mg PO DAILY Albuterol Sulfate [Ventolin HFA] 2 puff INH DAILY Triamterene/Hctz 37.5-25 Tab [Maxzide 37.5-25] 1 tablet PO QAM - Follow Up or Referral Follow Up: Isaías Bearden MD [Physician] - 12/12/16 9:30 am (2-3 weeks. BMP Mg, CBC) - Forms/Instructions Instructions: Chest Pain (DC), Left Heart Catheterization (DC) Exam - Constitutional Vitals: Period Temp Pulse Resp BP Sys/Stein Pulse Ox Last 24 Hr 97.2 F-98.9 F 75-86 16-20 130-196/68-87 94-99 Exam: Exam: General: [Appears well with no apparent distress.] [Pleasant and cooperative. ] [Appears comfortable.] HEENT: [PERRL, normocephalic, atraumatic. Mucous membranes moist. No jaundice noted. Conjunctiva moist and clear, sclerae anicteric] Neck: Unable to determine JVD due to habitus. No thyromegaly or lymphadenopathy noted. No carotid bruit appreciated Cardiac: [Regular rate and rhythm.] [IV/ VIKRAM heard best at BUSB. Lungs: [Clear to auscultation without accessory muscle use to assist the respiratory pattern.] Oxygen in use via nasal cannula Abdomen: Soft, bowel sounds normoactive. Nontender and nondistended. No abdominal bruit or thrill noted. No masses noted. Musculoskeletal: No fluid collection. Decreased range of motion is noted. Extremities: Right groin soft, free of hematoma or bruit. No clubbing, cyanosis noted. [Trace bilateral lower extremity edema noted.] Upper extremity pulses 2+. Lower extremity pulses 1+. Capillary refill less than 3 seconds. Skin: No unusual lesions or rashes. No skin breakdown appreciated. Neuro: Awake, alert and oriented 3. Moves all extremities well without hemiparesis or paralysis. No essential tremor is appreciated. Discharge Results Procedures and tests throughout hospitalization: Pending Orders 11/24/16 04:00 BMP w/ Mg [Basic Metabolic Panel w/Mg] IN AM CBC [Comp Blood Count Auto Diff] IN AM Comp Blood Count Auto Diff IN AM Comprehensive Metabolic Panel IN AM 11/25/16 04:00 BMP w/ Mg [Basic Metabolic Panel w/Mg] IN AM CBC [Comp Blood Count Auto Diff] IN AM Comp Blood Count Auto Diff IN AM Comprehensive Metabolic Panel IN AM Labs on day of discharge: Labs from last 24 hours 11/23/16 11/23/16 11/23/16 03:53 03:53 03:53 WBC 10.9 RBC 4.33 Hgb 11.8 L Hct 36.4 MCV 84.1 L MCH 27 MCHC 32.4 RDW 13.7 Plt Count 282 MPV 9.7 Neut % (Auto) 69.2 Lymph % (Auto) 19.[address] % (Auto) 8.9 Eos % (Auto) 1.8 Baso % (Auto) 0.2 Neut # (Auto) 7.5 H Lymph # (Auto) 2.1 [place] # (Auto) 1.0 H Eos # (Auto) 0.2 Baso # (Auto) 0.0 Immature Gran % 0.5 Nucleated RBC % 0.0 Immature Gran # 0.05 Nucleated RBCs # 0.00 Sodium 139 138 Potassium 3.8 3.8 Chloride 102 102 Carbon Dioxide 26 27 Anion Gap 14.8 12.8 BUN 16 15 Creatinine 1.00 1.00 GFR Calculation 111 111 BUN/Creatinine Ratio 16.00 15.00 Glucose 99 101 Calculated Osmolality 277.5 275.7 Calcium 9.3 9.1 Magnesium 2.2 Total Bilirubin 0.70 AST 34 ALT 39 Alkaline Phosphatase 62 Total Protein 7.3 Albumin 3.5 Globulin 3.8 H Albumin/Globulin Ratio 0.9 L - Imaging and Cardiology Cardiology Procedure: report reviewed by me Procedure: Chest x-ray: report reviewed by me DS: Provider Date of admission: 11/21/16 16:04 Primary care physician: . No PCP Attending physician on admission: Isaías Mckeon Consults: 11/21/16 16:45 Consult to Sleep Center [CONS] Routine Reason for Sleep Center: Sleep Center Physician Consult Comment: SLEEP DISORDER Discharging clinician: Dulce Mars NP Expected date of discharge: 11/23/16
[2016-11-23] MEDS ORDERED: ATORVASTATIN 20 MG TABLET PO SCH (21:00)
[2016-11-24] MEDS ORDERED: ASPIRIN EC 81 MG TABLET PO SCH (09:00)
== END 2016-11-23 15:00 | disposition home or self-care (01) ==
LOC: N.ED 12:15 → N.EDINP 12:15 → N.TELEN 16:29
PROVIDERS: ADMIT Internal Medicine Cardiovascular Disease; ATTEND Internal Medicine Cardiovascular Disease

== ENCOUNTER 2017-09-03 10:25 | Inpatient (IN) ==
[2017-09-03] MEDS ORDERED: ONDANSETRON 4 MG/2 ML VIAL IV STA (10:47)
[2017-09-03] MEDS ORDERED: hydrALAZINE 20 MG/1 ML VIAL IV STA (10:47)
[2017-09-03] MEDS ORDERED: ONDANSETRON 4 MG/2 ML VIAL ONE (11:37)
[2017-09-03] MEDS ORDERED: hydrALAZINE 20 MG/1 ML VIAL ONE (11:37)
[2017-09-03] MEDS ORDERED: ALTEPLASE 81 MG in PREMIX 1 EACH IV ONE (11:38)
[2017-09-03] MEDS ORDERED: ALTEPLASE 9 MG in PREMIX 1 EACH IV STA (11:38)
[2017-09-03 11:49] LABS: Basophils % 0.3 % (0.0-0.8); Eosinophils # 0.2 10*3/uL (0.0-0.87); Eosinophils % 1.7 % (0.00-10.9); Hematocrit 40.1 VOL% (35.7-47.0); Hemoglobin 12.6 GM/DL (12.0-16.0); Immature Granulocytes % 0.4 %; Immature Granulocytes Absolute 0.04 #; Lymphocytes # 2.1 10*3/uL (1.4-4.0); Mean Corpuscular HGB Conc 31.4 GM/DL (32-36); Mean Corpuscular Hemoglobin 27 PG (27-34); Mean Corpuscular Volume 86.2 FL (87-102); Mean Platelet Volume 10.7 FL (9.6-12.0); Monocytes # 0.8 10*3/uL (0.11-0.8); Monocytes % 8.8 % (1.7-12.7); Neutrophils # 6.1 10*3/uL (1.4-7.4); Neutrophils % 65.8 % (38.7-73.9); Platelet Count 246 T/CUMM (130-400); Red Blood Count 4.65 MC/CUMM (3.8-5.5); White Blood Count 9.3 T/CUMM (4-12)
[2017-09-03] MEDS ORDERED: ALTEPLASE 100 MG/100 ML BOTTLE ONE (11:51)
[2017-09-03 11:57] LABS: PT Patient Result 10.9 SECS; Partial Thromboplastin Time 21.4 SECS (0-40)
[2017-09-03 11:58] LABS: Apearance,Urine CLEAR (Clear); Bacteria,Urine Occasional /HPF (Few); Bilirubin,Urine Negative (Negative); Blood, Urine Moderate mg/dL (Negative); Glucose,Urine (UA) Negative (Negative); Ketones,Urine Negative (Negative); Mucus,Urine Occasional /LPF (Occasional); Nitrite,Urine Negative (Negative); Protein,Urine Negative; RBC,Urine 2 /HPF (0-4); Squamous Epithelial Cell,Urine Occasional /HPF (0-10); Urine Color Yellow (Yellow); Urine Specific Gravity 1.016 (1.001-1.035); WBC,Urine <1 /HPF (0-6)
[2017-09-03 12:10] LABS: Alanine Aminotransferase 25 U/L (13-56); Albumin 3.6 G/DL (3.4-5.0); Alkaline Phosphatase 61 U/L (45-117); Aspartate Amino Transferase 27 U/L (0-37); Blood Urea Nitrogen 22 MG/DL (7-18); Calcium 8.7 MG/DL (8.5-10.1); Glucose 101 MG/DL (74-106); Osmolality,Calculated 279.5 MOS/KG (273-304); Potassium 4.2 MMOL/L (3.5-5.1); Sodium 139 MMOL/L (136-145); Troponin I Only < 0.015 NG/ML (0.00-0.045)
[2017-09-03 12:16] LABS: Barbiturates Screen,Urine Negative (Negative); Benzodiazepines Screen,Urine Negative (Negative); Cannabinoid Screen,Urine Negative (Negative); Opiate Screen,Urine Negative (Negative); Phencyclidine Screen,Urine Negative (Negative)
[2017-09-03 13:26] LABS: Risk Ratio 5.42; VLDL CHOLESTEROL 26.6 MG/DL
[2017-09-03] MEDS ORDERED: LABETALOL 20 MG/4 ML SYRINGE IV PRN ×2 (14:20→19:23)
[2017-09-03] MEDS ORDERED: hydrALAZINE 20 MG/1 ML VIAL IV ONE (16:19)
[2017-09-03] MEDS ORDERED: ATORVASTATIN 40 MG TABLET PO SCH (21:00)
[2017-09-03] MEDS: ACETAMINOPHEN 325 MG TABLET PO PRN (22:11)
[2017-09-04 07:29] LABS: Basophils % 0.3 % (0.0-0.8); Eosinophils # 0.1 10*3/uL (0.0-0.87); Eosinophils % 1.1 % (0.00-10.9); Hematocrit 39.5 VOL% (35.7-47.0); Hemoglobin 12.6 GM/DL (12.0-16.0); Immature Granulocytes % 0.4 %; Immature Granulocytes Absolute 0.04 #; Lymphocytes # 2.2 10*3/uL (1.4-4.0); Lymphocytes % 20.3 % (21.3-54.2); Mean Corpuscular HGB Conc 31.9 GM/DL (32-36); Mean Corpuscular Hemoglobin 28 PG (27-34); Mean Corpuscular Volume 86.4 FL (87-102); Mean Platelet Volume 10.2 FL (9.6-12.0); Monocytes # 0.9 10*3/uL (0.11-0.8); Monocytes % 8.2 % (1.7-12.7); Neutrophils # 7.5 10*3/uL (1.4-7.4); Neutrophils % 69.7 % (38.7-73.9); Platelet Count 230 T/CUMM (130-400); Red Blood Count 4.57 MC/CUMM (3.8-5.5); Red Cell Distribution Width 14.1 % (9.3-17.3); White Blood Count 10.8 T/CUMM (4-12)
[2017-09-04 09:04] LABS: Calcium 8.9 MG/DL (8.5-10.1); Osmolality,Calculated 282.3 MOS/KG (273-304)
[2017-09-04] MEDS: ENOXAPARIN 40 MG/0.4 ML SYRINGE SUBCUT SCH (10:00)
[2017-09-04] MEDS ORDERED: NIFEdipine 10 MG CAPSULE PO PRN (10:56)
[2017-09-04] MEDS: ASPIRIN EC 81 MG TABLET PO SCH (11:34)
[2017-09-04] MEDS: FUROSEMIDE 40 MG TABLET PO SCH (11:34)
[2017-09-04] MEDS: LISINOPRIL 20 MG TABLET PO SCH (11:34)
[2017-09-04] MEDS: CARVEDILOL 12.5 MG TABLET PO SCH ×2 (11:34→20:29)
[2017-09-04] MEDS: ALBUTEROL 2.5 MG/3 ML NEB RESP TX SCH (12:00)
[2017-09-04] MEDS: ACETAMINOPHEN 325 MG TABLET PO PRN (14:05)
[2017-09-04] MEDS: ASCORBIC ACID 500 MG TABLET PO SCH ×2 (14:05→20:28)
[2017-09-04] MEDS: ATORVASTATIN 80 MG TABLET PO SCH (20:28)
[2017-09-04] MEDS ORDERED: ATORVASTATIN 20 MG TABLET PO SCH (21:00)
[2017-09-05 05:06] LABS: Calcium 8.8 MG/DL (8.5-10.1); Osmolality,Calculated 285.4 MOS/KG (273-304); Potassium 4.3 MMOL/L (3.5-5.1)
[2017-09-05] MEDS: ALBUTEROL 2.5 MG/3 ML NEB RESP TX SCH (07:32)
[2017-09-05] MEDS: ASCORBIC ACID 500 MG TABLET PO SCH ×2 (08:04→20:37)
[2017-09-05] MEDS: CARVEDILOL 12.5 MG TABLET PO SCH ×2 (08:04→20:37)
[2017-09-05] MEDS: ASPIRIN EC 81 MG TABLET PO SCH (08:04)
[2017-09-05] MEDS: FUROSEMIDE 40 MG TABLET PO SCH (08:04)
[2017-09-05] MEDS: LISINOPRIL 20 MG TABLET PO SCH (08:04)
[2017-09-05] MEDS: ENOXAPARIN 40 MG/0.4 ML SYRINGE SUBCUT SCH (08:05)
[2017-09-05] MEDS: ATORVASTATIN 80 MG TABLET PO SCH (20:37)
[2017-09-06] MEDS: ALBUTEROL 2.5 MG/3 ML NEB RESP TX SCH ×2 (07:10→07:11)
[2017-09-06] MEDS: FUROSEMIDE 40 MG TABLET PO SCH (10:30)
[2017-09-06] MEDS: CARVEDILOL 12.5 MG TABLET PO SCH (10:30)
[2017-09-06] MEDS: ASPIRIN EC 81 MG TABLET PO SCH (10:30)
[2017-09-06] MEDS: LISINOPRIL 20 MG TABLET PO SCH (10:31)
[2017-09-06] MEDS: ENOXAPARIN 40 MG/0.4 ML SYRINGE SUBCUT SCH (10:31)
[2017-09-06] MEDS: ASCORBIC ACID 500 MG TABLET PO SCH (13:56)
[2017-09-06 17:42] VITALS: BP 146/73
== END 2017-09-06 16:50 | disposition home or self-care (01) | DRG 62 ==
LOC: N.ED 10:25 → N.EDINP 12:27 → SUATTDRO 12:27 → N.CC 15:04 → N.4E 09-05 15:10
PROVIDERS: ADMIT Family Medicine; ATTEND Internal Medicine

== ENCOUNTER 2017-12-19 18:00 | Inpatient (IN) ==
[2017-12-21 15:52] VITALS: BP 119/94
== END 2017-12-21 18:34 | disposition home or self-care (01) | DRG 880 ==
LOC: EDUNIT# → EDBD → N.ED 18:00 → N.EDINP 19:54 → N.TELEN 20:49
PROVIDERS: ADMIT Internal Medicine; ATTEND Internal Medicine